=== PATIENT | female | born 1955 | race African-American/Black ===

== ENCOUNTER 2020-11-04 09:40 | Outpatient (CLI) | payer MEDICARE, MEDICAID | END 2020-11-04 09:41 | disposition home or self-care (01) | LOC: CSHWCC 09:40 | PROVIDERS: ATTEND Nurse Practitioner Family | DX: I87.2 Venous insufficiency (chronic) (peripheral) (principal); L89.323 Pressure ulcer of left buttock, stage 3; L97.222 Non-pressure chronic ulcer of left calf with fat layer exposed; L97.822 Non-pressure chronic ulcer of other part of left lower leg with fat layer exposed; R60.0 Localized edema; B18.2 Chronic viral hepatitis C; F32.9 Major depressive disorder, single episode, unspecified; G89.29 Other chronic pain; L08.9 Local infection of the skin and subcutaneous tissue, unspecified; B96.89 Other specified bacterial agents as the cause of diseases classified elsewhere; M79.662 Pain in left lower leg; M86.9 Osteomyelitis, unspecified; T50.995D Adverse effect of other drugs, medicaments and biological substances, subsequent encounter; Z74.01 Bed confinement status; Z89.411 Acquired absence of right great toe | CPT/HCPCS: 29581; 97139; G0463; 99213 ==

== ENCOUNTER 2020-11-27 11:42 | Outpatient (CLI) | payer OTHER, MEDICAID | END 2020-11-27 11:43 | disposition home or self-care (01) | LOC: CSHWCC 11:42 | PROVIDERS: ATTEND Nurse Practitioner Family | DX: I87.2 Venous insufficiency (chronic) (peripheral) (principal); L89.323 Pressure ulcer of left buttock, stage 3; L97.222 Non-pressure chronic ulcer of left calf with fat layer exposed; L97.822 Non-pressure chronic ulcer of other part of left lower leg with fat layer exposed; M86.9 Osteomyelitis, unspecified; R60.0 Localized edema; M79.662 Pain in left lower leg; G89.29 Other chronic pain; B18.2 Chronic viral hepatitis C; F32.9 Major depressive disorder, single episode, unspecified; L08.9 Local infection of the skin and subcutaneous tissue, unspecified; B96.89 Other specified bacterial agents as the cause of diseases classified elsewhere; T50.995S Adverse effect of other drugs, medicaments and biological substances, sequela; Z74.01 Bed confinement status; Z89.411 Acquired absence of right great toe | CPT/HCPCS: 29581; 99213; G0463 ==

== ENCOUNTER 2021-03-07 09:06 | Outpatient (CLI) | payer MEDICARE, MEDICAID | END 2021-03-07 09:07 | disposition home or self-care (01) | LOC: CSHWCC 09:06 | PROVIDERS: ATTEND Nurse Practitioner Family | DX: L89.323 Pressure ulcer of left buttock, stage 3 (principal); B18.2 Chronic viral hepatitis C; F32.9 Major depressive disorder, single episode, unspecified; G89.29 Other chronic pain; I87.2 Venous insufficiency (chronic) (peripheral); L08.9 Local infection of the skin and subcutaneous tissue, unspecified; B96.89 Other specified bacterial agents as the cause of diseases classified elsewhere; L97.222 Non-pressure chronic ulcer of left calf with fat layer exposed; L97.822 Non-pressure chronic ulcer of other part of left lower leg with fat layer exposed; M79.662 Pain in left lower leg; M86.9 Osteomyelitis, unspecified; R60.0 Localized edema; T50.995S Adverse effect of other drugs, medicaments and biological substances, sequela; Z74.01 Bed confinement status; Z89.411 Acquired absence of right great toe | CPT/HCPCS: 29581; 99213; G0463 ==

== ENCOUNTER 2021-05-29 10:16 | Outpatient (CLI) | payer MEDICARE, MEDICAID | END 2021-05-29 10:17 | disposition home or self-care (01) | LOC: CSHWCC 10:16 | PROVIDERS: ATTEND Nurse Practitioner Family | DX: L89.323 Pressure ulcer of left buttock, stage 3 (principal); L97.222 Non-pressure chronic ulcer of left calf with fat layer exposed; L97.822 Non-pressure chronic ulcer of other part of left lower leg with fat layer exposed; R60.0 Localized edema; I87.2 Venous insufficiency (chronic) (peripheral); B18.2 Chronic viral hepatitis C; F32.9 Major depressive disorder, single episode, unspecified; G89.29 Other chronic pain; L08.9 Local infection of the skin and subcutaneous tissue, unspecified; B96.89 Other specified bacterial agents as the cause of diseases classified elsewhere; M79.662 Pain in left lower leg; M86.9 Osteomyelitis, unspecified; T50.995S Adverse effect of other drugs, medicaments and biological substances, sequela; Z74.01 Bed confinement status; Z89.411 Acquired absence of right great toe | CPT/HCPCS: 17250; 29581; 97139; G0463; 99213 ==

== ENCOUNTER 2021-07-01 12:55 | Outpatient (CLI) | payer MEDICARE, MEDICAID | END 2021-07-01 12:56 | disposition home or self-care (01) | LOC: CSHWCC 12:55 | PROVIDERS: ATTEND Nurse Practitioner Family | DX: L89.323 Pressure ulcer of left buttock, stage 3 (principal); I87.2 Venous insufficiency (chronic) (peripheral); L97.222 Non-pressure chronic ulcer of left calf with fat layer exposed; L97.822 Non-pressure chronic ulcer of other part of left lower leg with fat layer exposed; M86.9 Osteomyelitis, unspecified; R60.0 Localized edema; M79.662 Pain in left lower leg; B18.2 Chronic viral hepatitis C; F32.9 Major depressive disorder, single episode, unspecified; G89.29 Other chronic pain; L08.9 Local infection of the skin and subcutaneous tissue, unspecified; B96.89 Other specified bacterial agents as the cause of diseases classified elsewhere; T50.995D Adverse effect of other drugs, medicaments and biological substances, subsequent encounter; Z74.01 Bed confinement status; Z89.411 Acquired absence of right great toe | CPT/HCPCS: 99213; G0463 ==

== ENCOUNTER 2021-07-29 11:49 | Outpatient (CLI) | payer MEDICARE, MEDICAID | END 2021-07-29 11:50 | disposition home or self-care (01) | LOC: CSHWCC 11:49 | PROVIDERS: ATTEND Nurse Practitioner Family | DX: L89.323 Pressure ulcer of left buttock, stage 3 (principal); L97.222 Non-pressure chronic ulcer of left calf with fat layer exposed; L97.822 Non-pressure chronic ulcer of other part of left lower leg with fat layer exposed; R60.0 Localized edema; I87.2 Venous insufficiency (chronic) (peripheral); B18.2 Chronic viral hepatitis C; F32.9 Major depressive disorder, single episode, unspecified; G89.29 Other chronic pain; L08.9 Local infection of the skin and subcutaneous tissue, unspecified; B96.89 Other specified bacterial agents as the cause of diseases classified elsewhere; M86.9 Osteomyelitis, unspecified; T50.995D Adverse effect of other drugs, medicaments and biological substances, subsequent encounter; Z74.01 Bed confinement status; Z89.411 Acquired absence of right great toe ==

== ENCOUNTER 2021-08-19 11:12 | Outpatient (CLI) | payer MEDICARE, MEDICAID | END 2021-08-19 11:13 | disposition home or self-care (01) | LOC: CSHWCC 11:12 | PROVIDERS: ATTEND Nurse Practitioner Family | DX: L89.323 Pressure ulcer of left buttock, stage 3 (principal); I87.2 Venous insufficiency (chronic) (peripheral); L97.222 Non-pressure chronic ulcer of left calf with fat layer exposed; L97.822 Non-pressure chronic ulcer of other part of left lower leg with fat layer exposed; M86.9 Osteomyelitis, unspecified; R60.0 Localized edema; T50.995D Adverse effect of other drugs, medicaments and biological substances, subsequent encounter; M79.662 Pain in left lower leg; B18.2 Chronic viral hepatitis C; F32.9 Major depressive disorder, single episode, unspecified; L08.9 Local infection of the skin and subcutaneous tissue, unspecified; B96.89 Other specified bacterial agents as the cause of diseases classified elsewhere; G89.29 Other chronic pain; Z74.01 Bed confinement status; Z89.411 Acquired absence of right great toe ==

== ENCOUNTER 2021-09-22 11:08 | Outpatient (CLI) | payer MEDICARE, OTHER | END 2021-09-22 11:09 | disposition home or self-care (01) | LOC: CSHWCC 11:08 | PROVIDERS: ATTEND Nurse Practitioner Family | DX: L97.222 Non-pressure chronic ulcer of left calf with fat layer exposed (principal); R60.0 Localized edema ==

== ENCOUNTER 2021-11-18 10:50 | Outpatient (CLI) | payer MEDICARE, MEDICAID | END 2021-11-18 10:51 | disposition home or self-care (01) | LOC: CSHWCC 10:50 | PROVIDERS: ATTEND Nurse Practitioner Family | DX: L97.222 Non-pressure chronic ulcer of left calf with fat layer exposed (principal); R60.0 Localized edema | CPT/HCPCS: 29581 ==

== ENCOUNTER 2021-12-02 10:50 | Outpatient (CLI) | payer MEDICARE, MEDICAID | END 2021-12-02 10:51 | disposition home or self-care (01) | LOC: CSHWCC 10:50 | PROVIDERS: ATTEND Nurse Practitioner Family | DX: L97.222 Non-pressure chronic ulcer of left calf with fat layer exposed (principal); R60.0 Localized edema | CPT/HCPCS: 29581 ==

== ENCOUNTER 2021-12-30 10:59 | Outpatient (CLI) | payer MEDICARE, MEDICAID | END 2021-12-30 11:00 | disposition home or self-care (01) | LOC: CSHWCC 10:59 | PROVIDERS: ATTEND Nurse Practitioner Family | DX: L97.222 Non-pressure chronic ulcer of left calf with fat layer exposed (principal); R60.0 Localized edema | CPT/HCPCS: 99213; G0463 ==

== ENCOUNTER 2022-01-27 09:30 | Outpatient (CLI) | payer OTHER, MEDICAID | END 2022-01-27 09:31 | disposition home or self-care (01) | LOC: CSHWCC 09:30 | PROVIDERS: ATTEND Nurse Practitioner Family | DX: L97.222 Non-pressure chronic ulcer of left calf with fat layer exposed (principal); R60.0 Localized edema ==

== ENCOUNTER 2022-02-24 10:14 | Outpatient (CLI) | payer OTHER, MEDICAID | END 2022-02-24 10:15 | disposition home or self-care (01) | LOC: CSHWCC 10:14 | PROVIDERS: ATTEND Nurse Practitioner Family | DX: L97.222 Non-pressure chronic ulcer of left calf with fat layer exposed (principal); R60.0 Localized edema | CPT/HCPCS: 29581 ==

== ENCOUNTER 2022-03-31 09:36 | Outpatient (CLI) | payer OTHER, MEDICAID | END 2022-03-31 09:37 | disposition home or self-care (01) | LOC: CSHWCC 09:36 | PROVIDERS: ATTEND Preventive Medicine Undersea and Hyperbaric Medicine | DX: L97.222 Non-pressure chronic ulcer of left calf with fat layer exposed (principal); R60.0 Localized edema | CPT/HCPCS: 29581 ==

== ENCOUNTER 2022-05-13 10:22 | Outpatient (CLI) | payer OTHER | END 2022-05-13 10:23 | disposition home or self-care (01) | LOC: CSHWCC 10:22 | PROVIDERS: ATTEND Nurse Practitioner Family | DX: L97.222 Non-pressure chronic ulcer of left calf with fat layer exposed (principal); R60.0 Localized edema | CPT/HCPCS: 11042 ==

== ENCOUNTER 2022-08-06 11:59 | Outpatient (CLI) | payer OTHER | END 2022-08-06 12:00 | disposition home or self-care (01) | LOC: CSHWCC 11:59 | PROVIDERS: ATTEND Nurse Practitioner Family | DX: L97.222 Non-pressure chronic ulcer of left calf with fat layer exposed (principal); R60.0 Localized edema | CPT/HCPCS: 29581 ==

== ENCOUNTER 2022-09-09 10:11 | Outpatient (CLI) | payer OTHER | END 2022-09-09 10:12 | disposition home or self-care (01) | LOC: CSHWCC 10:11 | PROVIDERS: ATTEND Nurse Practitioner Family | DX: R60.0 Localized edema (principal) | CPT/HCPCS: 29581 ==

== ENCOUNTER 2022-11-05 09:30 | Outpatient (CLI) | payer OTHER | END 2022-11-05 09:31 | disposition home or self-care (01) | LOC: CSHWCC 09:30 | PROVIDERS: ATTEND Nurse Practitioner Family | DX: L97.222 Non-pressure chronic ulcer of left calf with fat layer exposed (principal); R60.0 Localized edema ==

== ENCOUNTER 2023-02-15 09:47 | Outpatient (CLI) | payer OTHER, MEDICARE | END 2023-02-15 09:48 | disposition home or self-care (01) | LOC: CSHWCC 09:47 | PROVIDERS: ATTEND Nurse Practitioner Family | DX: L97.222 Non-pressure chronic ulcer of left calf with fat layer exposed (principal); R60.0 Localized edema | CPT/HCPCS: 97139; G0463; 99213 ==

== ENCOUNTER 2023-03-15 09:48 | Outpatient (CLI) | payer OTHER, MEDICARE | END 2023-03-15 09:49 | disposition home or self-care (01) | LOC: CSHWCC 09:48 | PROVIDERS: ATTEND Nurse Practitioner Family | DX: L97.222 Non-pressure chronic ulcer of left calf with fat layer exposed (principal); R60.0 Localized edema | CPT/HCPCS: 97139; G0463; 99213 ==

== ENCOUNTER 2023-05-13 09:20 | Outpatient (CLI) | payer OTHER | END 2023-05-13 09:21 | disposition home or self-care (01) | LOC: CSHWCC 09:20 | PROVIDERS: ATTEND Preventive Medicine Undersea and Hyperbaric Medicine | DX: I87.312 Chronic venous hypertension (idiopathic) with ulcer of left lower extremity (principal); I73.9 Peripheral vascular disease, unspecified; L51.1 Stevens-Johnson syndrome | CPT/HCPCS: 97597 ==

== ENCOUNTER 2023-06-03 09:35 | Outpatient (CLI) | payer OTHER | END 2023-06-03 09:36 | disposition home or self-care (01) | LOC: CSHWCC 09:35 | PROVIDERS: ATTEND Physician Assistant | DX: I87.312 Chronic venous hypertension (idiopathic) with ulcer of left lower extremity (principal); L51.1 Stevens-Johnson syndrome; I73.9 Peripheral vascular disease, unspecified | CPT/HCPCS: 36416; 97597 ==

== ENCOUNTER 2023-07-29 14:00 | Outpatient (CLI) | payer OTHER | END 2023-07-29 14:01 | disposition home or self-care (01) | LOC: CSHWCC 14:00 | PROVIDERS: ATTEND Preventive Medicine Undersea and Hyperbaric Medicine | DX: I87.312 Chronic venous hypertension (idiopathic) with ulcer of left lower extremity (principal); I73.9 Peripheral vascular disease, unspecified; L51.1 Stevens-Johnson syndrome | CPT/HCPCS: 99213; G0463 ==

== ENCOUNTER 2023-09-09 12:58 | Outpatient (CLI) | payer OTHER | END 2023-09-09 12:59 | disposition home or self-care (01) | LOC: CSHWCC 12:58 | PROVIDERS: ATTEND Nurse Practitioner Family | DX: I87.312 Chronic venous hypertension (idiopathic) with ulcer of left lower extremity (principal); L97.222 Non-pressure chronic ulcer of left calf with fat layer exposed; I73.9 Peripheral vascular disease, unspecified; L51.1 Stevens-Johnson syndrome | CPT/HCPCS: 11042 ==

== ENCOUNTER 2023-09-23 12:48 | Outpatient (CLI) | payer OTHER, MEDICAID | END 2023-09-23 12:49 | disposition home or self-care (01) | LOC: CSHWCC 12:48 | PROVIDERS: ATTEND Nurse Practitioner Family | DX: I87.312 Chronic venous hypertension (idiopathic) with ulcer of left lower extremity (principal); L97.222 Non-pressure chronic ulcer of left calf with fat layer exposed; L51.1 Stevens-Johnson syndrome; I73.9 Peripheral vascular disease, unspecified | CPT/HCPCS: 11042 ==